=== PATIENT | male | born 1965 | race Caucasian/White ===

== ENCOUNTER 2020-07-03 07:45 | Emergency (ER) | payer OTHER, SELFPAY ==
[~2020-07-03] VITALS: Ht 172.7 cm; Wt 92.5 kg
--- NOTE | 2020-07-03 07:50 | NUR ---
54/M C/O SORE THROAT X 3 DAYS. ALSO SLIGHT COUGH AND MILD BODY ACHES. VSS. NAD. HX- PVC's, GERD NKA
[2020-07-03 07:54] VITALS: BP 127/83
--- NOTE | 2020-07-03 07:56 | NUR ---
Dr. Shields evaluating pt at this time
--- NOTE | 2020-07-03 08:30 | NUR ---
giovanny CORONADO swab collected and walked to lab
--- NOTE | 2020-07-03 08:39 | NUR ---
Blaine harrison in [facility] - 07/03/20 at 0840 by MIAH giovanny CORONADO swab collected and walked to lab
--- NOTE | 2020-07-03 09:00 | NUR ---
Patient discharged with v/s stable. Written and verbal after care instructions given and explained. Patient verbalized understanding. Ambulatory with steady gait. All questions addressed prior to discharge. Advised to follow up with PMD.
[2020-07-03 09:12] VITALS: BP 127/83
== END 2020-07-03 09:00 | disposition home or self-care (01) ==
LOC: MED 07:45
DX: J02.9 Acute pharyngitis, unspecified (principal); K21.9 Gastro-esophageal reflux disease without esophagitis; Z90.49 Acquired absence of other specified parts of digestive tract
CPT/HCPCS: 99283